=== PATIENT | female | born 1975 | race Two or more races ===

== ENCOUNTER 2017-03-11 18:42 | Emergency (ER) | payer OTHER ==
[~2017-03-11] VITALS: Ht 167.6 cm; Wt 56.4 kg
[~2017-03-11 18:42] MED LIST: ADVAIR 100-501 EACH IH; BACTRIM,SEPT1 TABLET PO; BENADRYL25 MG PO; CIPRO500 MG PO; CLARITIN10 M3 PO; CLARITIN10 MG PO; DELTASONE20 M1 PO; EPIPEN ADU0.3 MG/0.3 IM; EYE DROP TEARS15 ML BOTH EYES; LEVAQUIN500 MG PO; MACROBID100 MG PO; MONISTAT 11 EACH VG; PEPCID40 MG PO; PREDNISONE20 MG PO; PROAIR HFA8.5 GM IH; PROVENTIL,2.5 MG/3 M IH; TAMIFLU75 MG PO; TESSALON PERLE100 MG PO; TESSALON200 MG PO; VENTOLIN HFA18 GM IH; VENTOLIN17 GM IH; ZITHROMAX Z-PA250 MG PO
[2017-03-11 19:50] LABS: ADD MIUA? YES; BILIRUBIN NEGATIVE; BLOOD NEGATIVE; COLOR YELLOW ((YELLOW)); GLUCOSE (STRIP) NEGATIVE; KETONES NEGATIVE; LEUKOCYTES NEGATIVE; NITRITE NEGATIVE; PROTEIN (STRIP) NEGATIVE; SPECIFIC GRAVITY 1.015 (1.000-1.030); UROBILINOGEN 0.2 MG/DL (0.2-1.0)
[2017-03-11 20:02] LABS: BACTERIA NONE SEEN /HPF; EPITHELIAL CELLS 1+ /HPF; MUCUS TRACE /LPF; RED BLOOD CELLS 0-5 /HPF (0-5); UCUL ADDED? NO; WHITE BLOOD CELLS 0-5 /HPF (0-5)
[2017-03-11] MEDS ORDERED: PYRIDIUM200 MG PO (21:46)
[2017-03-11 22:08] VITALS: BP 117/60
== END 2017-03-11 22:09 | disposition home or self-care (01) ==
LOC: EME 18:42
DX: R30.0 Dysuria (principal)
CPT/HCPCS: 81003; 99281; 99283

== ENCOUNTER 2017-06-18 09:28 | Emergency (ER) | payer OTHER ==
[~2017-06-18] VITALS: Ht 157.5 cm; Wt 56.9 kg
[~2017-06-18 09:28] MED LIST changes: +PYRIDIUM200 MG PO
[2017-06-18 14:00] LABS: BASOPHIL (%) 0.5 % (0-1); EOSINOPHIL (%) 0.2 % (0-5); HEMATOCRIT 36.7 % (36.0-46.0); HEMOGLOBIN 12.3 G/DL (11.9-15.5); IMMATURE GRANULOCYTE (%) 0.5 % (0.0-0.7); LYMPHOCYTE (%) 6.7 % (15-42); LYMPHOCYTE COUNT 0.3 K/uL (1.0-2.8); MCH 26.6 PG (29.0-34.0); MCHC 33.5 G/DL (30.0-36.0); MCV 79.4 FL (83-99); MONOCYTE (%) 10.1 % (3-12); MONOCYTE COUNT 0.4 K/uL (0-0.8); NEUTROPHIL COUNT 3.4 K/uL (1.8-6.4); PLATELET COUNT 201 K/uL (156-360); RBC DIS.WIDTH-CV 14.6 % (11.8-14.6); RBC DIS.WIDTH-SD 42.3 % (39-53); RED BLOOD COUNT 4.62 M/uL (3.80-5.20); WHITE BLOOD COUNT 4.2 K/uL (4.1-10.2)
[2017-06-18 14:08] LABS: ALBUMIN 4.1 g/dL (3.2-4.8); CHLORIDE 107 mEq/L (99-109); POTASSIUM 4.4 mEq/L (3.7-5.4); SODIUM 137 mEq/L (136-147)
[2017-06-18 14:10] LABS: GLUCOSE 92 mg/dL (70-99)
[2017-06-18 14:11] LABS: TOTAL PROTEIN 7.1 g/dL (6.4-8.3)
[2017-06-18 14:12] LABS: TOTAL BILIRUBIN 0.4 mg/dL (0.0-1.0)
[2017-06-18 14:14] LABS: ALKALINE PHOSPHATASE 57 IU/L (3-129); CREATININE 0.8 mg/dL (0.6-1.3); GFR ESTIMATE (CALCULATED) > 59 mL/min/
[2017-06-18 14:15] LABS: UREA NITROGEN (BUN) 9 mg/dL (9-23)
[2017-06-18 14:16] LABS: AST (GOT) 14 IU/L (2-34)
[2017-06-18 14:17] LABS: ALT (GPT) 13 IU/L (3-49)
[2017-06-18 14:46] VITALS: BP 98/52
== END 2017-06-18 14:47 | disposition home or self-care (01) ==
LOC: EME 09:28
PROVIDERS: Physician Assistant
DX: B34.9 Viral infection, unspecified (principal); R51 Headache; R11.2 Nausea with vomiting, unspecified; R50.9 Fever, unspecified; R00.0 Tachycardia, unspecified; J45.909 Unspecified asthma, uncomplicated
CPT/HCPCS: 71046; 80053; 85025; 87502; J7030

== ENCOUNTER 2017-07-31 07:28 | Emergency (ER) | payer OTHER ==
[~2017-07-31] VITALS: Ht 157.5 cm; Wt 57.7 kg
[2017-07-31 08:27] LABS: APPEARANCE SL.HAZY ((CLEAR)); BILIRUBIN NEGATIVE; BLOOD NEGATIVE; COLOR YELLOW ((YELLOW)); GLUCOSE (STRIP) NEGATIVE; KETONES NEGATIVE; LEUKOCYTES LARGE; NITRITE NEGATIVE; PROTEIN (STRIP) NEGATIVE; SPECIFIC GRAVITY 1.014 (1.000-1.030); UROBILINOGEN 0.2 MG/DL (0.2-1.0)
[2017-07-31 08:31] LABS: BACTERIA 2+ /HPF; EPITHELIAL CELLS 1+ /HPF; MUCUS TRACE /LPF; RED BLOOD CELLS 0-5 /HPF (0-5); UCUL ADDED? YES; WHITE BLOOD CELLS 0-5 /HPF (0-5)
[2017-07-31] MEDS ORDERED: PYRIDIUM200 MG PO (08:58)
[2017-07-31] MEDS ORDERED: MACROBID100 MG PO (08:58)
[2017-07-31 09:48] VITALS: BP 120/79
== END 2017-07-31 09:48 | disposition home or self-care (01) ==
LOC: EME 07:28
PROVIDERS: Nurse Practitioner Family
DX: N39.0 Urinary tract infection, site not specified (principal); Z88.0 Allergy status to penicillin
CPT/HCPCS: 81003; 81025; 87086; 99281; 99283

== ENCOUNTER 2017-10-17 07:46 | Emergency (ER) | payer OTHER ==
[~2017-10-17] VITALS: Ht 157.5 cm; Wt 55.9 kg
[2017-10-17] MEDS ORDERED: NAPROSYN500 MG PO (11:32)
[2017-10-17 11:58] VITALS: BP 135/85
== END 2017-10-17 11:59 | disposition home or self-care (01) ==
LOC: EME 07:46
DX: M70.842 Other soft tissue disorders related to use, overuse and pressure, left hand (principal); Z88.0 Allergy status to penicillin
CPT/HCPCS: 73130; 99281; 99284